=== PATIENT | female | born 1945 | race Caucasian/White ===

== ENCOUNTER 2019-05-29 13:24 | Inpatient (IN) | payer MEDICARE, MEDICAID ==
[2019-05-29] VITALS (8 sets, daily range): BP systolic 99–143; BP diastolic 50–79
[~2019-05-29] VITALS: Ht 162.6 cm; Wt 83.9 kg
--- NOTE | 2019-05-29 13:44 | Emergency Room Report ---
History of Present Illness General Chief Complaint: General Complaint Source: Patient Present Illness HPI 74-year-old female presents with right middle quadrant pain for 2 days, no fevers no chills, she endorses an achy pain no aggravating or alleviating factors severity is moderate, pain is been constant, she denies any dysuria, no diarrhea, no blood in her stool, no chest pain or shortness of breath, she was sent over from Dr. Mcduffie office for tachycardia, she has been asymptomatic, patient presents for evaluation Allergies: Coded Allergies: No Known Allergies (Unverified , 05/29/19) Patient History Past Medical History: see triage record Reviewed Nursing Documentation: PMH: Agreed; PSxH: Agreed Nursing Documentation-PMH Hx Cardiac Problems: Yes Hx Diabetes: Yes Review of Systems All Other Systems: negative except mentioned in HPI Physical Exam Vital Signs Date Time Temp Pulse Resp B/P (MAP) Pulse Ox O2 Delivery O2 Flow Rate FiO2 05/29/19 13:34 99.0 129 19 143/79 (100) 93 Room Air Sp02 EP Interpretation: reviewed, normal General Appearance: well appearing, no apparent distress, alert Head: normocephalic, atraumatic Eyes: bilateral eye PERRL, bilateral eye EOMI ENT: uvula midline, moist mucus membranes Neck: supple, thyroid normal, supple/symm/no masses Respiratory: lungs clear, no respiratory distress, no retraction, no accessory muscle use Cardiovascular #1: normal peripheral pulses, no edema, no gallop, no murmur, tachycardia Gastrointestinal: soft, no guarding, tenderness - Diffuse tenderness, moderate in nature, no rebound no guarding Musculoskeletal: normal inspection Neurologic: alert, oriented x3 Psychiatric: mood/affect normal Skin: no rash, warm/dry Medical Decision Making Diagnostic Impression: Primary Impression: Appendicitis Qualified Codes: K35.20 - Acute appendicitis with generalized peritonitis, without abscess ER Course Pt with generalized abdominal pain concerning for possible appendicitis versus diverticulitis, versus other intra-abdominal process Labs show an elevated white count, CT shows appendicitis, surgery contacted, patient will be admitted to Patient given Zosyn, and fluids Patient admitted for operative management Laboratory Tests Test 05/29/19 14:10 White Blood Count 13.5 K/UL (4.8-10.8) H Red Blood Count 4.79 M/UL (4.20-5.40) Hemoglobin 15.1 G/DL (12.0-16.0) Hematocrit 44.2 % (37.0-47.0) Mean Corpuscular Volume 92 FL (80-99) Mean Corpuscular Hemoglobin 31.5 PG (27.0-31.0) H Mean Corpuscular Hemoglobin Concent 34.1 G/DL (32.0-36.0) Red Cell Distribution Width 12.5 % (11.6-14.8) Platelet Count 235 K/UL (150-450) Mean Platelet Volume 7.0 FL (6.5-10.1) Neutrophils (%) (Auto) 78.5 % (45.0-75.0) H Lymphocytes (%) (Auto) 11.1 % (20.0-45.0) L Monocytes (%) (Auto) 9.1 % (1.0-10.0) Eosinophils (%) (Auto) 0.7 % (0.0-3.0) Basophils (%) (Auto) 0.6 % (0.0-2.0) Sodium Level 134 MMOL/L (136-145) L Potassium Level 3.4 MMOL/L (3.5-5.1) L Chloride Level 106 MMOL/L (98-107) Carbon Dioxide Level 25 MMOL/L (21-32) Anion Gap 3 mmol/L (5-15) L Blood Urea Nitrogen 14 mg/dL (7-18) Creatinine 1.2 MG/DL (0.55-1.30) Estimate Glomerular Filtration Rate mL/min (>60) Glucose Level 158 MG/DL (74-106) H Calcium Level 9.2 MG/DL (8.5-10.1) Total Bilirubin 1.0 MG/DL (0.2-1.0) Aspartate Amino Transferase (AST) 15 U/L (15-37) Alanine Aminotransferase (ALT) 17 U/L (12-78) Alkaline Phosphatase 61 U/L (46-116) Total Creatine Kinase 86 U/L (26-308) Creatine Kinase MB 0.6 NG/ML (0.0-3.6) Creatine Kinase MB Relative Index 0.6 Troponin I 0.000 ng/mL (0.000-0.056) Pro-B-Type Natriuretic Peptide 271 pg/mL (0-125) H Total Protein 7.4 G/DL (6.4-8.2) Albumin 3.4 G/DL (3.4-5.0) Globulin 4.0 g/dL Albumin/Globulin Ratio 0.9 (1.0-2.7) L Lipase 51 U/L (73-393) L Thyroid Stimulating Hormone (TSH) 3.532 uiU/mL (0.358-3.740) Free Thyroxine 0.96 NG/DL (0.76-1.46) Free Triiodothyronine 2.5 pg/mL (2.3-4.2) EKG Diagnostic Results EKG Time: 13:41 EP Interpretation: Sinus tachycardia, rate 123 QTc 49, no acute ST elevations Rate: tachycardiac Rhythm: other - sinus tachycardia ST Segments: no acute changes Rhythm Strip Diag. Results Rhythm Strip Time: 13:58 EP Interpretation: yes Rate: 120 Rhythm: no PVC's, no ectopy, other - sinus tachycardia Chest X-Ray Diagnostic Results Chest X-Ray Diagnostic Results : Chest X-Ray Ordered: Yes # of Views/Limited/Complete: 1 View Indication: Chest Pain EP Interpretation: Yes Interpretation: no consolidation, no effusion, no pneumothorax, no acute cardiopulmonary disease Impression: No acute disease Electronically Signed by: Josr Benjamin MD CT/MRI/US Diagnostic Results CT/MRI/US Diagnostic Results : Impression Findings: Dependent atelectasis noted in the lung bases. Heart size within normal limits. Mild coronary arterial calcifications noted. Aortic valvular calcifications also seen. There is no pericardial effusion. A nonspecific right pericardiophrenic lymph node measures up to 7 mm in short axis. Hepatic contour is smooth. No focal hepatic mass lesion is appreciated on this single phase exam. Hepatic veins and portal veins are patent. There is cholelithiasis. No gallbladder wall thickening or pericholecystic inflammatory changes identified. No biliary ductal dilatation. Spleen, adrenal glands unremarkable. There is mild pancreatic atrophy which may be related to patient's age. No peripancreatic inflammatory changes or fluid collections. The kidneys enhance symmetrically. There is no urinary tract stone or hydronephrosis. No perinephric fluid collections. Apparent mild thickening of the wall the bladder may be related to underdistention. Correlate with urinalysis is recommended to exclude the possibility of cystitis. Some fluid attenuation is noted within the uterus. Given patient's age recommend further evaluation with pelvic ultrasound on a routine basis. The appendix is abnormally dilated, with the base of the appendix measuring up to 12 mm in diameter. There is hyperenhancement of the appendiceal wall. There is periappendiceal inflammatory stranding. See axial images 58-63. Findings are compatible with an acute appendicitis. There is no free intraperitoneal air or fluid. There is no evidence of small bowel obstruction. Abdominal aorta is normal in caliber. There is overall moderate atherosclerotic vascular calcifications. There is a small fat-containing umbilical hernia. There are degenerative changes in the spine with vacuum disc phenomenon at multiple levels. No acute osseous abnormality identified. IMPRESSION: * Findings compatible with an acute appendicitis. No evidence of perforation or abscess formation. No evidence of associated bowel obstruction. * Cholelithiasis without CT evidence to suggest acute cholecystitis. * Apparent mild thickening of the wall the bladder may be related to underdistention. Correlate with urinalysis to exclude the possibility of cystitis. * Mild fluid attenuation noted within the uterus. Given patient's age recommend further evaluation with pelvic ultrasound on a routine basis. Additional incidental findings as above. The CT scanner at [facility] is accredited by the [employer] and the scans are performed using protocols designed to limit radiation exposure to as low as reasonably achievable to attain images of sufficient resolution adequate for diagnostic evaluation. Dictated By: Michael Matias M.D. Electronically Signed By: Michael Matias M.D. Signed Date/Time 05/29/19 1525 CC: Josr Benjamin MD Last Vital Signs Date Time Temp Pulse Resp B/P (MAP) Pulse Ox O2 Delivery O2 Flow Rate FiO2 05/29/19 13:34 99.0 129 19 143/79 (100) 93 Room Air Disposition: ADMITTED INPATIENT Condition: Stable Josr Benjamin MD May 29, 2019 13:44
[2019-05-29] MEDS ORDERED: Isovue-300 100ml vial INJ PRN (13:45)
[2019-05-29] MEDS ORDERED: Morphine Sulfate 4mg/ml Inj (IV USE ONLY) IVP ONE (13:45)
--- NOTE | 2019-05-29 14:26 | Diagnostic Imaging Report ---
Indication: Chest pain Technique: XRAY Chest 1v Comparison: None Findings: Heart size and mediastinal contours are within normal limits for AP technique and patient's age. There is no focal airspace consolidation, pneumothorax or pleural effusion. Osseous structures demonstrate no acute abnormality. Atherosclerotic calcifications noted. Impression: No radiographic evidence of acute cardiopulmonary disease. Atherosclerotic disease.
[2019-05-29 14:31] LABS: BASOPHILS % (AUTO) 0.6 % (0.0-2.0); EOSINOPHILS % (AUTO) 0.7 % (0.0-3.0); HEMATOCRIT 44.2 % (37.0-47.0); HEMOGLOBIN 15.1 G/DL (12.0-16.0); LYMPHOCYTES % (AUTO) 11.1 % (20.0-45.0); MEAN CORPUSCULAR VOLUME 92 FL (80-99); MONOCYTES % (AUTO) 9.1 % (1.0-10.0); NEUTROPHILS % (AUTO) 78.5 % (45.0-75.0); PLATELET COUNT 235 K/UL (150-450); RED BLOOD COUNT 4.79 M/UL (4.20-5.40); RED CELL DISTRIBUTION WIDTH 12.5 % (11.6-14.8); WHITE BLOOD COUNT 13.5 K/UL (4.8-10.8)
[2019-05-29 14:43] LABS: ANION GAP 3 mmol/L (5-15); BLOOD UREA NITROGEN 14 mg/dL (7-18); CALCIUM 9.2 MG/DL (8.5-10.1); CARBON DIOXIDE 25 MMOL/L (21-32); CHLORIDE 106 MMOL/L (98-107); CREATININE 1.2 MG/DL (0.55-1.30); POTASSIUM 3.4 MMOL/L (3.5-5.1); SODIUM 134 MMOL/L (136-145)
[2019-05-29 14:59] LABS: ALANINE AMINOTRANSFERASE 17 U/L (12-78); ALBUMIN 3.4 G/DL (3.4-5.0); ALBUMIN/GLOBULIN RATIO 0.9 (1.0-2.7); ALKALINE PHOSPHATASE 61 U/L (46-116); ASPARTATE AMINO TRANSFERASE 15 U/L (15-37); CKMB 0.6 NG/ML (0.0-3.6); CREATINE KINASE 86 U/L (26-308)
[2019-05-29] MEDS ORDERED: Piperacillin/Tazobactam 3.375 GM in NS 110 ML IVPB ONE (15:30)
--- NOTE | 2019-05-29 15:31 | Diagnostic Imaging Report ---
Indication: Trauma pain Technique: CT of the abdomen and pelvis utilizing automated exposure control with intravenous contrast. Venous scanning performed. Axial, sagittal and coronal reformats presented. CT dose: Total DLP 814.72 mGycm; CTDI vol 15.91 mGy Comparison: None Findings: Dependent atelectasis noted in the lung bases. Heart size within normal limits. Mild coronary arterial calcifications noted. Aortic valvular calcifications also seen. There is no pericardial effusion. A nonspecific right pericardiophrenic lymph node measures up to 7 mm in short axis. Hepatic contour is smooth. No focal hepatic mass lesion is appreciated on this single phase exam. Hepatic veins and portal veins are patent. There is cholelithiasis. No gallbladder wall thickening or pericholecystic inflammatory changes identified. No biliary ductal dilatation. Spleen, adrenal glands unremarkable. There is mild pancreatic atrophy which may be related to patient's age. No peripancreatic inflammatory changes or fluid collections. The kidneys enhance symmetrically. There is no urinary tract stone or hydronephrosis. No perinephric fluid collections. Apparent mild thickening of the wall the bladder may be related to underdistention. Correlate with urinalysis is recommended to exclude the possibility of cystitis. Some fluid attenuation is noted within the uterus. Given patient's age recommend further evaluation with pelvic ultrasound on a routine basis. The appendix is abnormally dilated, with the base of the appendix measuring up to 12 mm in diameter. There is hyperenhancement of the appendiceal wall. There is periappendiceal inflammatory stranding. See axial images 58-63. Findings are compatible with an acute appendicitis. There is no free intraperitoneal air or fluid. There is no evidence of small bowel obstruction. Abdominal aorta is normal in caliber. There is overall moderate atherosclerotic vascular calcifications. There is a small fat-containing umbilical hernia. There are degenerative changes in the spine with vacuum disc phenomenon at multiple levels. No acute osseous abnormality identified. IMPRESSION: * Findings compatible with an acute appendicitis. No evidence of perforation or abscess formation. No evidence of associated bowel obstruction. * Cholelithiasis without CT evidence to suggest acute cholecystitis. * Apparent mild thickening of the wall the bladder may be related to underdistention. Correlate with urinalysis to exclude the possibility of cystitis. * Mild fluid attenuation noted within the uterus. Given patient's age recommend further evaluation with pelvic ultrasound on a routine basis. Additional incidental findings as above. The CT scanner at [facility] is accredited by the [employer] and the scans are performed using protocols designed to limit radiation exposure to as low as reasonably achievable to attain images of sufficient resolution adequate for diagnostic evaluation.
--- NOTE | 2019-05-29 17:07 | Consultation ---
History of Present Illness General Date patient seen: May 29, 2019 Reason for Hospitalization: General Complaint Present Illness HPI 74-year-old female presents with right middle quadrant pain for 2 days, no fevers no chills, she endorses an achy pain no aggravating or alleviating factors severity is moderate, pain is been constant, she denies any dysuria, no diarrhea, no blood in her stool, no chest pain or shortness of breath, she was sent over from Dr. Mcduffie office who she was visiting today. CT with acute appy. surgery called to evaluate. Allergies: Coded Allergies: No Known Allergies (Unverified , 05/29/19) Patient History History Provided By: Patient Healthcare decision maker N Resuscitation status Advanced Directive on File Past Medical/Surgical History Past Medical/Surgical History: (1) Appendicitis Review of Systems Review of Symptoms General ROS: no weight loss or fever Psychological ROS: no depression or mood changes, no memory loss Ophthalmic ROS: no visual changes or eye irritation ENT ROS: no nasal congestion, hearing loss, dizziness Allergy and Immunology ROS: no allergic symptoms or urticaria Hematological and Lymphatic ROS: no swollen glands, unusual bleeding or bruising Endocrine ROS: no polyuria, polydipsia, weight changes, temperature intolerance Respiratory ROS: no cough, shortness of breath, or wheezing Cardiovascular ROS: no chest pain or dyspnea on exertion Gastrointestinal ROS: abdominal pain, no bright red blood in stool. Musculoskeletal ROS: no myalgias or arthralgias Neurological ROS: no TIA or stroke symptoms Dermatological ROS: no new or changing skin lesions, rashes or pruritis Physical Exam Physical Exam General appearance: alert, cooperative, no distress, appears stated age Head: Normocephalic, without obvious abnormality, atraumatic Eyes: conjunctivae/corneas clear. PERRL, EOM's intact. Fundi benign Throat: Lips, mucosa, and tongue normal. Teeth and gums normal Neck: supple, symmetrical, trachea midline, no adenopathy, thyroid: not enlarged, symmetric, no tenderness/mass/nodules, no carotid bruit and no JVD Lungs: clear to auscultation bilaterally Heart: regular rate and rhythm, S1, S2 normal, no murmur, click, rub or gallop Abdomen: soft, RLQ-tender. Bowel sounds normal. No masses, no organomegaly Extremities: extremities normal, atraumatic, no cyanosis or edema Pulses: 2+ and symmetric Skin: Skin color, texture, turgor normal. No rashes or lesions Neurologic: Grossly normal Last 24 Hour Vital Signs Date Time Temp Pulse Resp B/P (MAP) Pulse Ox O2 Delivery O2 Flow Rate FiO2 05/29/19 13:34 99.0 129 19 143/79 (100) 93 Room Air 05/29/19 13:34 99.0 129 19 143/79 93 Room Air 05/29/19 13:34 129 19 Room Air Laboratory Tests Test 05/29/19 14:10 White Blood Count 13.5 K/UL (4.8-10.8) H Red Blood Count 4.79 M/UL (4.20-5.40) Hemoglobin 15.1 G/DL (12.0-16.0) Hematocrit 44.2 % (37.0-47.0) Mean Corpuscular Volume 92 FL (80-99) Mean Corpuscular Hemoglobin 31.5 PG (27.0-31.0) H Mean Corpuscular Hemoglobin Concent 34.1 G/DL (32.0-36.0) Red Cell Distribution Width 12.5 % (11.6-14.8) Platelet Count 235 K/UL (150-450) Mean Platelet Volume 7.0 FL (6.5-10.1) Neutrophils (%) (Auto) 78.5 % (45.0-75.0) H Lymphocytes (%) (Auto) 11.1 % (20.0-45.0) L Monocytes (%) (Auto) 9.1 % (1.0-10.0) Eosinophils (%) (Auto) 0.7 % (0.0-3.0) Basophils (%) (Auto) 0.6 % (0.0-2.0) Sodium Level 134 MMOL/L (136-145) L Potassium Level 3.4 MMOL/L (3.5-5.1) L Chloride Level 106 MMOL/L (98-107) Carbon Dioxide Level 25 MMOL/L (21-32) Anion Gap 3 mmol/L (5-15) L Blood Urea Nitrogen 14 mg/dL (7-18) Creatinine 1.2 MG/DL (0.55-1.30) Estimat Glomerular Filtration Rate mL/min (>60) Glucose Level 158 MG/DL (74-106) H Calcium Level 9.2 MG/DL (8.5-10.1) Total Bilirubin 1.0 MG/DL (0.2-1.0) Aspartate Amino Transf (AST/SGOT) 15 U/L (15-37) Alanine Aminotransferase (ALT/SGPT) 17 U/L (12-78) Alkaline Phosphatase 61 U/L (46-116) Total Creatine Kinase 86 U/L (26-308) Creatine Kinase MB 0.6 NG/ML (0.0-3.6) Creatine Kinase MB Relative Index 0.6 Troponin I 0.000 ng/mL (0.000-0.056) Pro-B-Type Natriuretic Peptide 271 pg/mL (0-125) H Total Protein 7.4 G/DL (6.4-8.2) Albumin 3.4 G/DL (3.4-5.0) Globulin 4.0 g/dL Albumin/Globulin Ratio 0.9 (1.0-2.7) L Lipase 51 U/L (73-393) L Thyroid Stimulating Hormone (TSH) 3.532 uiU/mL (0.358-3.740) Free Thyroxine 0.96 NG/DL (0.76-1.46) Free Triiodothyronine 2.5 pg/mL (2.3-4.2) Height (Feet): 5 Height (Inches): 4.00 Weight (Pounds): 185 Medications Current Medications Medications (Trade) Dose Ordered Sig/Artis Route PRN Reason Start Time Stop Time Status Last Admin Dose Admin Iopamidol (Isovue-300 100ml) 100 ml NOW PRN INJ Radiology Procedure 05/29/19 13:45 Assessment/Plan Problem List: (1) Appendicitis Assessment & Plan: 74F acute appy RLQ tender CT IMPRESSION: * Findings compatible with an acute appendicitis. No evidence of perforation or abscess formation. No evidence of associated bowel obstruction. * Cholelithiasis without CT evidence to suggest acute cholecystitis. * Apparent mild thickening of the wall the bladder may be related to underdistention. Correlate with urinalysis to exclude the possibility of cystitis. * Mild fluid attenuation noted within the uterus. Given patient's age recommend further evaluation with pelvic ultrasound on a routine basis. NPO IV fluids IV Abx Consent To OR for lap vs open appy ICD Codes: K37 - Unspecified appendicitis SNOMED: [id number] Qualifiers: Qualified Codes: K35.20 - Acute appendicitis with generalized peritonitis, without abscess Jose L Cornell May 29, 2019 17:07
[2019-05-29] MEDS ORDERED: NS Irrig 1000ml ONE (17:30)
[2019-05-29] MEDS ORDERED: Sterile Water Irrig 1000ml IRRIG ONE (17:30)
[2019-05-29] MEDS ORDERED: Zemuron 50mg/5ml Inj IV ONE (17:30)
[2019-05-29] MEDS ORDERED: LR 1000ml ONE (17:30)
[2019-05-29] MEDS ORDERED: Lidocaine 1% MPF 10mg/ml 5ml ONE (17:42)
[2019-05-29] MEDS ORDERED: Propofol 200mg/20ml IV ONE (17:42)
[2019-05-29] MEDS ORDERED: Midazolam 2mg/2ml Inj ONE (17:46)
[2019-05-29] MEDS ORDERED: LR 1000ml 1,000 ML IVLG SCH (17:46)
[2019-05-29] MEDS ORDERED: fentaNYL 100 mcg/2 mL IV ONE (17:46)
--- NOTE | 2019-05-29 17:56 | Pre-Procedure Note/Attestation ---
Pre-Procedure Note/Attestation Complete Prior to Procedure Procedure Narrative: laparoscopic appendectomy possible open Indications for Procedure Pre-Operative Diagnosis: acute appendicitis Attestation I attest that I discussed the nature of the procedure; its benefits; risks and complications; and alternatives (and the risks and benefits of such alternatives ), prior to the procedure, with the patient (or the patient's legal sales utility representative). I attest that, if there was a reasonable possibility of needing a blood transfusion, the patient (or the patient's legal sales utility representative) was given the [facility] standardized written summary, pursuant to the Anthony Gabriela Blood Safety Act ([place] Health and Safety Code # 1645, as amended). I attest that I re-evaluated the patient just prior to the surgery and that there has been no change in the patient's H&P, except as documented below: Jose L Cornell May 29, 2019 17:56
[2019-05-29] MEDS ORDERED: Acetaminophen (Non formulary) 100 ML IV SCH (18:00)
[2019-05-29] MEDS ORDERED: Hydromorphone 0.5mg/0.5ml inj IVP PRN (18:00)
[2019-05-29] MEDS ORDERED: Labetalol 5mg/ml 20ml vial IV PRN (18:00)
[2019-05-29] MEDS ORDERED: Midazolam 2mg/2ml Inj IVP PRN (18:00)
[2019-05-29] MEDS ORDERED: HYDROcodone/Acetamin 7.5/325 tab ORAL PRN (18:00)
[2019-05-29] MEDS ORDERED: Ketorolac 30mg Inj IV PRN ×2 (18:00)
[2019-05-29] MEDS ORDERED: DiphenhydrAMINE 50mg/ml Inj IVP PRN (18:00)
[2019-05-29] MEDS ORDERED: oxyCODONE HCL/Acetaminophen 5/325mg ORAL PRN (18:00)
[2019-05-29] MEDS ORDERED: fentaNYL 100 mcg/2 mL IV PRN (18:00)
[2019-05-29] MEDS ORDERED: Metoclopramide 10mg/2ml Inj IVP PRN ×2 (18:00→19:15)
[2019-05-29] MEDS ORDERED: Meperidine 50mg/ml Inj(FOR RIGORS ONLY) IVP PRN (18:00)
[2019-05-29] MEDS ORDERED: Atropine Sulfate 0.4mg/ml inj IVP PRN (18:00)
[2019-05-29] MEDS ORDERED: HYDROcodone/Acetamin 5/325 tab ORAL PRN (18:00)
[2019-05-29] MEDS ORDERED: LORazepam Inj 2mg/ml 1ml IV PRN (18:00)
--- NOTE | 2019-05-29 18:31 | Anethesia Preoperative Eval ---
Anesthesia Pre-op PMH/ROS General Date of Evaluation: May 29, 2019 Time of Evaluation: 17:28 Anesthesiologist: Lissett ASA Score: ASA 3 - Emergency Mallampati Score Class I : Soft palate, uvula, fauces, pillars visible Class II: Soft palate, uvula, fauces visible Class III: Soft palate, base of uvula visible Class IV: Only hard plate visible Mallampati Classification: Class II Surgeon: Aneta Diagnosis: Acute Apendicitis Surgical Procedure: Laprscopic Appendectomy Anesthesia History: none Family History: no anesthesia problems Allergies: Coded Allergies: No Known Allergies (Unverified , 05/29/19) Medications: see eMAR Patient NPO?: Yes NPO Date: May 29, 2019 NPO Time: 0900 Past Medical History Cardiovascular: Reports: HTN Endocrine: Reports: DM Other: obesity - BMI 33 Anesthesia Pre-op Phys. Exam Physician Exam Last Vital Signs Date Time Temp Pulse Resp B/P (MAP) Pulse Ox O2 Delivery O2 Flow Rate FiO2 05/29/19 16:30 Room Air 05/29/19 15:00 99.0 05/29/19 13:34 129 19 143/79 (100) 93 Constitutional: NAD Neurologic: CN 2-12 intact Cardiovascular: RRR Respiratory: CTA Gastrointestinal: S/NT/ND Airway Exam Mallampati Score: Class II MO: full ROM: limited Teeth: missing, intact Anesthesia Pre-op A/P Labs Hematology Test 05/29/19 14:10 White Blood Count 13.5 K/UL (4.8-10.8) H Red Blood Count 4.79 M/UL (4.20-5.40) Hemoglobin 15.1 G/DL (12.0-16.0) Hematocrit 44.2 % (37.0-47.0) Mean Corpuscular Volume 92 FL (80-99) Mean Corpuscular Hemoglobin 31.5 PG (27.0-31.0) H Mean Corpuscular Hemoglobin Concent 34.1 G/DL (32.0-36.0) Red Cell Distribution Width 12.5 % (11.6-14.8) Platelet Count 235 K/UL (150-450) Mean Platelet Volume 7.0 FL (6.5-10.1) Neutrophils (%) (Auto) 78.5 % (45.0-75.0) H Lymphocytes (%) (Auto) 11.1 % (20.0-45.0) L Monocytes (%) (Auto) 9.1 % (1.0-10.0) Eosinophils (%) (Auto) 0.7 % (0.0-3.0) Basophils (%) (Auto) 0.6 % (0.0-2.0) Chemistry Test 05/29/19 14:10 Sodium Level 134 MMOL/L (136-145) L Potassium Level 3.4 MMOL/L (3.5-5.1) L Chloride Level 106 MMOL/L (98-107) Carbon Dioxide Level 25 MMOL/L (21-32) Anion Gap 3 mmol/L (5-15) L Blood Urea Nitrogen 14 mg/dL (7-18) Creatinine 1.2 MG/DL (0.55-1.30) Estimat Glomerular Filtration Rate mL/min (>60) Glucose Level 158 MG/DL (74-106) H Calcium Level 9.2 MG/DL (8.5-10.1) Total Bilirubin 1.0 MG/DL (0.2-1.0) Aspartate Amino Transf (AST/SGOT) 15 U/L (15-37) Alanine Aminotransferase (ALT/SGPT) 17 U/L (12-78) Alkaline Phosphatase 61 U/L (46-116) Total Creatine Kinase 86 U/L (26-308) Creatine Kinase MB 0.6 NG/ML (0.0-3.6) Creatine Kinase MB Relative Index 0.6 Troponin I 0.000 ng/mL (0.000-0.056) Pro-B-Type Natriuretic Peptide 271 pg/mL (0-125) H Total Protein 7.4 G/DL (6.4-8.2) Albumin 3.4 G/DL (3.4-5.0) Globulin 4.0 g/dL Albumin/Globulin Ratio 0.9 (1.0-2.7) L Lipase 51 U/L (73-393) L Thyroid Stimulating Hormone (TSH) 3.532 uiU/mL (0.358-3.740) Free Thyroxine 0.96 NG/DL (0.76-1.46) Free Triiodothyronine 2.5 pg/mL (2.3-4.2) Risk Assessment & Plan Assessment: ASA 3E Plan: GA, SED, GlideScope Go Status Change Before Surgery: No Pre-Antibiotics Dru Gram Ancef IV Given Within 1 Hr of Incision: Yes Time Given: 18:01 Lloyd Galeana MD May 29, 2019 18:30
--- NOTE | 2019-05-29 18:32 | Immediate Post-Op Evaluation ---
Immediate Post-Op Evalulation Immediate Post-Op Evalulation Procedure: Laparoscopic Appendectomy Date of Evaluation: May 29, 2019 Time of Evaluation: 19:29 IV Fluids: 600 LR Blood Products: 0 Estimated Blood Loss: 19 Urinary Output: 0 Blood Pressure Systolic: 128 Blood Pressure Diastolic: 60 Pulse Rate: 82 Respiratory Rate: 16 O2 Sat by Pulse Oximetry: 98 Temperature (Fahrenheit): 97.5 Pain Score (1-10): 2 Nausea: No Vomiting: No Complications 0 Patient Status: awake, reacts, patent, extubated, none Hydration Status: adequate Dru Gram Ancef IV Given Within 1 Hr of Incision: Yes Time Given: 18:01 Lloyd Galeana MD May 29, 2019 18:32
--- NOTE | 2019-05-29 18:34 | 48 Hour Post Anesthesia Eval ---
Post Anesthesia Evaluation Procedure: Laparoscopic Appendectomy Date of Evaluation: May 29, 2019 Time of Evaluation: 21:34 Blood Pressure Systolic: 138 0: 81 Pulse Rate: 89 Respiratory Rate: 18 Temperature (Fahrenheit): 97.9 O2 Sat by Pulse Oximetry: 97 Airway: patent Nausea: No Vomiting: No Pain Intensity: 2 Hydration Status: adequate Cardiopulmonary Status: Stable Mental Status/LOC: patient returned to baseline Follow-up Care/Observations: 0 Post-Anesthesia Complications: 0 Follow-up care needed: N/A Lloyd Galeana MD May 29, 2019 18:34
[2019-05-29] MEDS ORDERED: NS Irrig 1000ml IRRIG ONE (18:40)
[2019-05-29] MEDS ORDERED: Glycopyrrolate 0.2mg/ml 1ml Vial ONE (18:49)
[2019-05-29] MEDS ORDERED: Flumazenil 0.1mg/ml 5ml Inj IV ONE (19:03)
--- NOTE | 2019-05-29 19:06 | Brief Operative Note ---
Immediate Post Operative Note Operative Note Pre-op Diagnosis: acute appendicitis Procedure: lap appy Post-op Diagnosis: same as pre-op Surgeon: london Anesthesiologist: randolph Anesthesia: general, local Specimen: yes Complications: none Condition: stable Fluids: see records Estimated Blood Loss: minimal Drains: none Implant(s) used?: No Jose L Cornell May 29, 2019 19:06
[2019-05-29] MEDS ORDERED: Sennosides 8.6mg tab ORAL PRN (19:15)
[2019-05-29] MEDS ORDERED: Morphine Sulfate 4mg/ml Inj (IV USE ONLY) IVP PRN (19:15)
[2019-05-29] MEDS ORDERED: Morphine Sulfate 2mg/ml Inj(IV/IM USE ONLY) IVP PRN (19:15)
[2019-05-29] MEDS ORDERED: Milk of Magnesia 30ml Ud ORAL PRN (19:15)
[2019-05-29] MEDS: Piperacillin/Tazobactam 3.375 GM in NS 110 ML IVPB SCH (22:00)
[2019-05-29] MEDS: D5 1/2NS w/KCl 20mEq 1,000 ML IV SCH (22:00)
[2019-05-30] VITALS: BP 120/60
--- NOTE | 2019-05-30 00:30 | Operative Note - Dictated ---
DATE OF OPERATION: 05/29/2019 PREOPERATIVE DIAGNOSIS: Acute appendicitis. POSTOPERATIVE DIAGNOSIS: Acute appendicitis. OPERATION PERFORMED: Laparoscopic appendectomy. ATTENDING SURGEON: Jose L Cornell M.D. ANIMAL SERVICES OFFICER: None. ANESTHESIOLOGIST: Lloyd Galeana M.D. ANESTHESIA: General CHAIN CARRIER. ESTIMATED BLOOD LOSS: Minimal. IV FLUIDS: Please see anesthesia records. COMPLICATIONS: None. DRAINS: None. SPECIMENS: Appendix sent to pathology for review. WOUND CLASSIFICATION: Class III. ANTIBIOTICS: The patient is given IV Zosyn 1 hour prior to cut time. INDICATIONS FOR PROCEDURE: This is a 74-year-old female who presented to her primary care physician earlier today complaining of abdominal pain. Abdominal pain was in the right lower quadrant, present for approximately two days. The patient was instructed to come to emergency department for evaluation and came to the emergency department at [facility], at which time was identified to have leukocytosis and CT scan consistent with acute appendicitis. The patient had focal right lower quadrant tenderness. Surgery was indicated and recommended. Risks, benefits, and alternatives were discussed with the patient in detail, who expressed understanding and consented to surgery. Of note, patient's daughter was spoken to on the phone as well, who was in [place] and flying down for her postoperative care plan. OPERATIVE NOTE: The patient was taken to the operating room and placed on the operating table in supine position with left arm tucked. All bony prominences well padded. SCDs were placed. Preoperative time-out was taken, identifying the patient, procedure, operative staff, and surgical staff. General anesthesia was induced and the patient was intubated. The abdomen was clipped, prepped, and draped in the standard surgical fashion. An infraumbilical incision was made and carried down to the fascia, which was elevated and incised. Entry into the abdomen was obtained using the open Paul technique without complication. A 12 mm Paul trocar was inserted and the abdomen was insufflated to 12 to 15 mmHg. The patient tolerated the insufflation well. The secondary trocar was placed under direct visualization beginning with a 12 mm left lower quadrant followed by 5 mm suprapubic port site. The patient was placed in Trendelenburg with the left side down. Laparoscopic grasper was used in the right lower quadrant, a dilated inflamed appendix was identified after the tenia of the cecum was noted and followed at the confluence. The appendix was grasped and elevated. A window was made at the base of the appendix between the appendix and mesoappendix. A laparoscopic 12 mm linear stapler was then used and the base of the appendix was divided. Following this, in a similar fashion, the mesoappendix was divided using a laparoscopic linear stapler for vascular load. The appendix was placed in endoscopic retrieval bag and removed at the end of procedure from the umbilical port site. The appendiceal base and mesoappendix staple lines were evaluated and noted to be mildly oozy. The laparoscopic clips were placed and good hemostasis was noted. The right lower quadrant and pelvis were evaluated and mildly irrigated and suctioned. At this time, good hemostasis was noted and no other abnormalities were noted. We decided to begin the conclusion of our procedure. Secondary trocars removed under direct visualization, noted to be hemostatic. The umbilical trocar site was removed as well the appendix. Appendix sent to pathology for review. The umbilical trocar site fascia was reapproximated using a [id number] #0 Vicryl suture. The remaining skin incisions were reapproximated using 4-0 Monocryl subcuticular interrupted sutures. Skin glue and Steri-Strips were applied. Local anesthetic was infiltrated throughout all its incisions and port sites for the patient's comfort throughout the procedure. The patient was extubated and taken to postanesthesia care unit in stable condition. Daniel Douglas JOB#: [id number] CC:
[2019-05-30] MEDS: Morphine Sulfate 2mg/ml Inj(IV/IM USE ONLY) IVP PRN ×3 (03:07→13:47)
[2019-05-30] MEDS: HYDROcodone/Acetamin 5/325 tab ORAL PRN (03:24)
[2019-05-30 04:00] VITALS: BP 123/71
[2019-05-30 06:01] LABS: BASOPHILS % (AUTO) 0.5 % (0.0-2.0); EOSINOPHILS % (AUTO) 3.3 % (0.0-3.0); HEMATOCRIT 38.8 % (37.0-47.0); HEMOGLOBIN 13.2 G/DL (12.0-16.0); LYMPHOCYTES % (AUTO) 11.8 % (20.0-45.0); MEAN CORPUSCULAR VOLUME 93 FL (80-99); MONOCYTES % (AUTO) 10.6 % (1.0-10.0); NEUTROPHILS % (AUTO) 73.8 % (45.0-75.0); PLATELET COUNT 197 K/UL (150-450); RED BLOOD COUNT 4.16 M/UL (4.20-5.40); RED CELL DISTRIBUTION WIDTH 12.8 % (11.6-14.8); WHITE BLOOD COUNT 10.5 K/UL (4.8-10.8)
[2019-05-30 06:41] LABS: ANION GAP 7 mmol/L (5-15); BLOOD UREA NITROGEN 9 mg/dL (7-18); CALCIUM 8.5 MG/DL (8.5-10.1); CARBON DIOXIDE 28 MMOL/L (21-32); CHLORIDE 106 MMOL/L (98-107); CREATININE 1.3 MG/DL (0.55-1.30); POTASSIUM 3.7 MMOL/L (3.5-5.1); SODIUM 141 MMOL/L (136-145)
[2019-05-30] MEDS: Piperacillin/Tazobactam 3.375 GM in NS 110 ML IVPB SCH ×3 (06:59→21:21)
[2019-05-30 08:00] VITALS: BP 130/92
[2019-05-30] MEDS ORDERED: KEPPRA500 M3 ORAL (08:20)
[2019-05-30] MEDS ORDERED: LISINOPRIL20 MG ORAL (08:21)
[2019-05-30] MEDS ORDERED: LIPITOR80 MG ORAL (08:27)
[2019-05-30] MEDS ORDERED: CLOPIDOGREL75 MG ORAL (08:27)
[2019-05-30] MEDS ORDERED: AMLODIPINE BES2.5 MG ORAL (08:27)
[2019-05-30] MEDS: Docusate 100mg cap ORAL SCH ×3 (08:40→17:14)
--- NOTE | 2019-05-30 09:11 | History & Physical ---
History and Physical History & Physicial 74 year old female presented to my office with sinus tachycardia and abdominal pain. Patient noted to be toxic and transferred to the ER and noted to have appendicitis. Patient was taken to the OR and underwent an appy. care discussed with surgery. Family present this am. Overall doing well and started diet and placed on antibiotics. No fevers or chills or shortness of breath. Patient currently alert and stable care discussed with nursing PMH hypertension atherosclerosis seizure disorder MEDS and ALLERGIES: noted and reviewed SOCIAL: retired; no smoking or drinking ROS: otherwise negative PHYSICAL WDWN NAD clear breath sounds bilaterally without rhonchi or wheeze [id number] without MRG NABS mildly tender no HSM no CCE nonfocal Labs Test 05/29/19 14:10 05/30/19 04:54 White Blood Count 13.5 K/UL (4.8-10.8) 10.5 K/UL (4.8-10.8) Red Blood Count 4.79 M/UL (4.20-5.40) 4.16 M/UL (4.20-5.40) Hemoglobin 15.1 G/DL (12.0-16.0) 13.2 G/DL (12.0-16.0) Hematocrit 44.2 % (37.0-47.0) 38.8 % (37.0-47.0) Mean Corpuscular Volume 92 FL (80-99) 93 FL (80-99) Mean Corpuscular Hemoglobin 31.5 PG (27.0-31.0) 31.6 PG (27.0-31.0) Mean Corpuscular Hemoglobin Concent 34.1 G/DL (32.0-36.0) 33.9 G/DL (32.0-36.0) Red Cell Distribution Width 12.5 % (11.6-14.8) 12.8 % (11.6-14.8) Platelet Count 235 K/UL (150-450) 197 K/UL (150-450) Mean Platelet Volume 7.0 FL (6.5-10.1) 6.8 FL (6.5-10.1) Neutrophils (%) (Auto) 78.5 % (45.0-75.0) 73.8 % (45.0-75.0) Lymphocytes (%) (Auto) 11.1 % (20.0-45.0) 11.8 % (20.0-45.0) Monocytes (%) (Auto) 9.1 % (1.0-10.0) 10.6 % (1.0-10.0) Eosinophils (%) (Auto) 0.7 % (0.0-3.0) 3.3 % (0.0-3.0) Basophils (%) (Auto) 0.6 % (0.0-2.0) 0.5 % (0.0-2.0) Sodium Level 134 MMOL/L (136-145) 141 MMOL/L (136-145) Potassium Level 3.4 MMOL/L (3.5-5.1) 3.7 MMOL/L (3.5-5.1) Chloride Level 106 MMOL/L (98-107) 106 MMOL/L (98-107) Carbon Dioxide Level 25 MMOL/L (21-32) 28 MMOL/L (21-32) Anion Gap 3 mmol/L (5-15) 7 mmol/L (5-15) Blood Urea Nitrogen 14 mg/dL (7-18) 9 mg/dL (7-18) Creatinine 1.2 MG/DL (0.55-1.30) 1.3 MG/DL (0.55-1.30) Estimat Glomerular Filtration Rate mL/min (>60) mL/min (>60) Glucose Level 158 MG/DL (74-106) 128 MG/DL (74-106) Calcium Level 9.2 MG/DL (8.5-10.1) 8.5 MG/DL (8.5-10.1) Total Bilirubin 1.0 MG/DL (0.2-1.0) Aspartate Amino Transf (AST/SGOT) 15 U/L (15-37) Alanine Aminotransferase (ALT/SGPT) 17 U/L (12-78) Alkaline Phosphatase 61 U/L (46-116) Total Creatine Kinase 86 U/L (26-308) Creatine Kinase MB 0.6 NG/ML (0.0-3.6) Creatine Kinase MB Relative Index 0.6 Troponin I 0.000 ng/mL (0.000-0.056) Pro-B-Type Natriuretic Peptide 271 pg/mL (0-125) Total Protein 7.4 G/DL (6.4-8.2) Albumin 3.4 G/DL (3.4-5.0) Globulin 4.0 g/dL Albumin/Globulin Ratio 0.9 (1.0-2.7) Lipase 51 U/L (73-393) Thyroid Stimulating Hormone (TSH) 3.532 uiU/mL (0.358-3.740) Free Thyroxine 0.96 NG/DL (0.76-1.46) Free Triiodothyronine 2.5 pg/mL (2.3-4.2) Prothrombin Time 10.2 SEC (9.30-11.50) Prothromb Time International Ratio 1.0 (0.9-1.1) Activated Partial Thromboplast Time 30 SEC (23-33) IMPRESSION appendicitis s/p Appy leukocytosis possible sepsis seizure do hypertension PLAN post op pain management iv antibiotics resume home meds impression, plan, and exam edited and reviewed in detail care discussed with Quinten Baker MD May 30, 2019 09:11
--- NOTE | 2019-05-30 09:12 | General Progress Note ---
Subjective Allergies: Coded Allergies: No Known Allergies (Unverified , 05/29/19) Objective Last 24 Hour Vital Signs Date Time Temp Pulse Resp B/P (MAP) Pulse Ox O2 Delivery O2 Flow Rate FiO2 05/30/19 08:00 94 05/30/19 08:00 97.3 93 18 130/92 (105) 98 05/30/19 04:00 99.2 94 16 123/71 (88) 96 05/30/19 04:00 89 05/30/19 00:00 97.8 80 16 120/60 (80) 95 05/30/19 00:00 92 05/29/19 21:00 Room Air 05/29/19 20:15 97.8 88 19 118/68 96 Nasal Cannula 3 05/29/19 20:00 87 05/29/19 20:00 86 18 111/54 97 Nasal Cannula 3 05/29/19 19:48 88 18 99/50 98 Nasal Cannula 3 05/29/19 19:38 84 17 105/52 97 Nasal Cannula 3 05/29/19 19:28 85 19 105/52 98 Nasal Cannula 3 05/29/19 19:23 84 18 110/55 96 Nasal Cannula 3 05/29/19 19:18 97.5 83 23 128/60 97 Simple Mask 6 05/29/19 19:17 89 18 97 05/29/19 19:16 82 16 98 05/29/19 16:30 Room Air 05/29/19 15:45 98.3 100 19 143/79 93 Room Air 05/29/19 15:00 99.0 05/29/19 13:34 99.0 129 19 143/79 (100) 93 Room Air 05/29/19 13:34 99.0 129 19 143/79 93 Room Air 05/29/19 13:34 129 19 Room Air Intake and Output 05/29/19 05/30/19 19:00 07:00 Intake Total 0 ml 700 ml Output Total 0 ml 19 ml Balance 0 ml 681 ml Intake Oral 0 ml IV Total 700 ml Output Urine Total 0 ml Estimated Blood Loss 19 ml # Voids 1 2 Laboratory Tests 05/29/19 14:10: White Blood Count 13.5H, Red Blood Count 4.79, Hemoglobin 15.1, Hematocrit 44.2 , Mean Corpuscular Volume 92, Mean Corpuscular Hemoglobin 31.5H, Mean Corpuscular Hemoglobin Concent 34.1, Red Cell Distribution Width 12.5, Platelet Count 235, Mean Platelet Volume 7.0, Neutrophils (%) (Auto) 78.5H, Lymphocytes ( %) (Auto) 11.1L, Monocytes (%) (Auto) 9.1, Eosinophils (%) (Auto) 0.7, Basophils (%) (Auto) 0.6, Sodium Level 134L, Potassium Level 3.4L, Chloride Level 106, Carbon Dioxide Level 25, Anion Gap 3L, Blood Urea Nitrogen 14, Creatinine 1.2, Estimat Glomerular Filtration Rate , Glucose Level 158H, Calcium Level 9.2, Total Bilirubin 1.0, Aspartate Amino Transf (AST/SGOT) 15, Alanine Aminotransferase (ALT/SGPT) 17, Alkaline Phosphatase 61, Total Creatine Kinase 86, Creatine Kinase MB 0.6, Creatine Kinase MB Relative Index 0.6, Troponin I 0.000, Pro-B-Type Natriuretic Peptide 271H, Total Protein 7.4, Albumin 3.4, Globulin 4.0, Albumin/Globulin Ratio 0.9L, Lipase 51L, Thyroid Stimulating Hormone (TSH) 3.532, Free Thyroxine 0.96, Free Triiodothyronine 2.5 05/30/19 04:54: White Blood Count 10.5, Red Blood Count 4.16L, Hemoglobin 13.2, Hematocrit 38.8 , Mean Corpuscular Volume 93, Mean Corpuscular Hemoglobin 31.6H, Mean Corpuscular Hemoglobin Concent 33.9, Red Cell Distribution Width 12.8, Platelet Count 197, Mean Platelet Volume 6.8, Neutrophils (%) (Auto) 73.8, Lymphocytes (% ) (Auto) 11.8L, Monocytes (%) (Auto) 10.6H, Eosinophils (%) (Auto) 3.3H, Basophils (%) (Auto) 0.5, Sodium Level 141, Potassium Level 3.7, Chloride Level 106, Carbon Dioxide Level 28, Anion Gap 7, Blood Urea Nitrogen 9, Creatinine 1.3 , Estimat Glomerular Filtration Rate , Glucose Level 128H, Calcium Level 8.5, Prothrombin Time 10.2, Prothromb Time International Ratio 1.0, Activated Partial Thromboplast Time 30 Height (Feet): 5 Height (Inches): 4.00 Weight (Pounds): 185 Quinten Mcduffie MD May 30, 2019 09:12
--- NOTE | 2019-05-30 11:13 | General Progress Note ---
Progress Note Progress Note POD #1 s/p lap appy doing well incisional tenderness labs okay and improved no n/v/f/c adv diet ambulate d/c planning Jose L Cornell May 30, 2019 11:13
[2019-05-30 12:00] VITALS: BP 136/65
[2019-05-30] MEDS: D5 1/2NS w/KCl 20mEq 1,000 ML IV SCH (14:48)
[2019-05-30 16:00] VITALS: BP 131/70
[2019-05-30 20:00] VITALS: BP 114/68
[2019-05-30] MEDS ORDERED: Atorvastatin 80mg tab ORAL SCH (21:00)
[2019-05-30] MEDS: Lisinopril 20mg tab ORAL SCH (21:21)
[2019-05-31] VITALS: BP 118/70
[2019-05-31] MEDS: D5 1/2NS w/KCl 20mEq 1,000 ML IV SCH (00:40)
[2019-05-31] MEDS: Morphine Sulfate 2mg/ml Inj(IV/IM USE ONLY) IVP PRN (01:14)
[2019-05-31 04:00] VITALS: BP 115/68
[2019-05-31] MEDS: HYDROcodone/Acetamin 5/325 tab ORAL PRN (05:39)
[2019-05-31] MEDS: Piperacillin/Tazobactam 3.375 GM in NS 110 ML IVPB SCH (05:39)
[2019-05-31 08:00] VITALS: BP 138/76
--- NOTE | 2019-05-31 08:50 | General Progress Note ---
Assessment/Plan Assessment/Plan: IMPRESSION appendicitis s/p Appy leukocytosis possible sepsis seizure do hypertension PLAN post op care as is IS pain management dc antibiotics resume home meds hold aspirin and plavix x 3 days and resume follow up with surgery and myself home health impression, plan, and exam edited and reviewed in detail care discussed with RN Subjective Allergies: Coded Allergies: No Known Allergies (Unverified , 05/29/19) Subjective care noted comfortable nontoxic low grade fever Objective Last 24 Hour Vital Signs Date Time Temp Pulse Resp B/P (MAP) Pulse Ox O2 Delivery O2 Flow Rate FiO2 05/31/19 08:00 98.7 108 18 138/76 (96) 93 05/31/19 04:00 99.4 103 18 115/68 (84) 95 05/31/19 04:00 100 05/31/19 00:00 99.2 102 18 118/70 (86) 95 05/31/19 00:00 98 05/30/19 21:21 125/78 05/30/19 21:00 Room Air 05/30/19 20:00 119 05/30/19 20:00 99.1 116 20 114/68 (83) 97 05/30/19 17:45 98.8 05/30/19 16:00 116 05/30/19 16:00 100.1 122 18 131/70 (90) 93 05/30/19 14:17 97.3 05/30/19 12:00 104 05/30/19 12:00 98.6 100 18 136/65 (88) 95 05/30/19 09:00 Room Air Intake and Output 05/30/19 05/31/19 19:00 07:00 Intake Total 550 ml Balance 550 ml Intake Oral 550 ml # Voids 4 2 Height (Feet): 5 Height (Inches): 4.00 Weight (Pounds): 185 Objective WDWN NAD clear breath sounds bilaterally without rhonchi or wheeze [id number] without MRG NABS mildly tender no HSM no CCE nonfocal Quinten Mcduffie MD May 31, 2019 08:50
[2019-05-31] MEDS ORDERED: NORCO 5-325 TA1 EACH ORAL (09:17)
[2019-05-31] MEDS ORDERED: COLACE100 MG ORAL (09:19)
[2019-05-31] MEDS ORDERED: ADVIL200 M2 ORAL (09:22)
[2019-05-31 09:44] VITALS: BP 138/76
[2019-05-31] MEDS: Docusate 100mg cap ORAL SCH (09:44)
[2019-05-31] MEDS: Lisinopril 20mg tab ORAL SCH (09:44)
--- NOTE | 2019-06-01 11:04 | Discharge Summary ---
Discharge Summary Discharge Summary _ DATE OF ADMISSION: 05/29/2019 DATE OF DISCHARGE: 05/31/2019 DISCHARGED BY: Dr. Mcduffie REASON FOR ADMISSION: 74 years old female with past medical history of hypertension, seizure disorder , presented initially to the office with abdominal pain and tachycardia. Upon evaluation in the office , patient was noted to be toxic and subsequently was referred to emergency room for further evaluation and management . CT of the abdomen and pelvis , done in ER, revealed findings compatible with acute appendicitis. No evidence of perforation or abscess formation. No evidence of associated bowel obstruction. Cholelithiasis without CT evidence to suggest acute cholecystitis. Laboratory work-up revealed leukocytosis with WBC 13.5, stable hemoglobin and hematocrit. Potassium 3.4, sodium 134. Troponin negative. EKG reveals sinus tachycardia no acute ischemic changes. Stable LFT and renal parameters. Chest x-ray revealed no acute cardiopulmonary pathology. Surgery consult was requested , and patient was admitted for surgical intervention. CONSULTANTS: surgery Dr. Cornell [facility]: Patient admitted to telemetry floor. Patient was kept n.p.o. and started on the IV fluids and empiric antibiotic. Patient consented for surgery. Patient subsequently undergone laparoscopic appendectomy on 05/29. Course of recovery was uneventful. Pain management was addressed as needed. Patient slowly started on diet as tolerated. Mobilization out of bed and ambulation encouraged. Aspirin and Plavix were on hold for 3 days and then to be resumed. Blood pressure was managed with current regimen of calcium channel jorge and MATTHEW inhibitor. Seizure precaution maintained. No evidence of seizure activity while in the hospital. Keppra continued. Bowel regimen instituted. Renal parameters and electrolytes were closely monitored. Potassium corrected as needed nephrotoxins were avoided. TSH within normal limits. Leukocytosis resolved. Heart rate stabilized. Pulse oximetry stable on room air. Follow-up with the pathology results /pending at the time of this dictation . Surgeon closely followed. Pain controlled, afebrile, tolerated diet , ambulated. Surgeon cleared for discharge. Outpatient follow-up with primary care provider and surgeon as advised. FINAL DIAGNOSES: Acute appendicitis Status post laparoscopic appendectomy Leukocytosis Possible sepsis Seizure disorder Hypertension DISCHARGE MEDICATIONS: See Medication Reconciliation list. DISCHARGE INSTRUCTIONS: Patient was discharged home with home health services. Follow up with primary care provider in one week. I have been assigned to dictate discharge summary for this account. I was not involved in the patient's management. Viky Conde NP Jun 01, 2019 11:04
== END 2019-05-31 11:35 | disposition home health service (06) | DRG 854 ==
LOC: EMR 14:16 → 2E 14:19 → EDBEDREQ 15:30
PROC: 0DTJ4ZZ Resection of Appendix, Percutaneous Endoscopic Approach (ICD-10-PCS; principal; 2019-05-29 16:30)
DX: A41.9 Sepsis, unspecified organism (principal); K35.80 Unspecified acute appendicitis; G40.89 Other seizures; I10 Essential (primary) hypertension; I70.90 Unspecified atherosclerosis; K80.20 Calculus of gallbladder without cholecystitis without obstruction
CPT/HCPCS: 36415; 71045; 74177; 80048; 80053; 80299; 82550; 82553; 83690; 83880; 84439; 84443; 84481; 84484; 85025; 85610; 85730; 93005; 94003; 94150; 96361; 96365; 96375; 99285; J2250; J2405